=== PATIENT | male | born 1940 | race Caucasian/White ===

== ENCOUNTER 2017-02-06 09:07 | Day surgery (SDC) | payer MEDICARE, OTHER ==
--- NOTE | ~2017-02-06 | EGD ---
EGD REPORT [facility] [address] [address] NAME: BRAXTON ALEJANDRE : [birth year] STATUS : REG [facility] [place] PAT#: [id number] AGE: 76 ADM/REG DATE : 02/06/17 MR#: [id number] REPORT SERV DATE: 02/06/17 DICTATED BY: CHARLI RANGEL III DATE: 02/06/17 REPORT STATUS : Draft TRANSCRIBED BY: [facility] DATE: 02/06/17 Endoscopy Center Patient Name: Braxton Alejandre Date of : 1940 Attending MD: CHARLI RANGEL III, MD Procedure Date No Time: 02/06/2017 Procedure: Upper GI endoscopy Indications: Melena Referring MD: SOLANGE BARAKAT Medicines: Propofol per Anesthesia Complications: No immediate complications. Procedure: Pre-Anesthesia Assessment: - ASA Grade Assessment: III - A patient with severe systemic disease. After obtaining informed consent, the endoscope was passed under direct vision. Throughout the procedure, the patient's blood pressure, pulse, and oxygen saturations were monitored continuously. The GIF H190 [id number] was introduced through the mouth, and advanced to the third part of duodenum. The upper GI endoscopy was accomplished with ease. The patient tolerated the procedure well. Findings: Localized mild erythema was found at the gastroesophageal junction. Biopsies were taken with a cold forceps for histology. A non-obstructing Schatzki ring (acquired) was found at the gastroesophageal junction. A medium-sized hiatus hernia was present. Multiple dispersed, small non-bleeding erosions were found in the gastric antrum. There were stigmata of recent bleeding. Biopsies were taken with a cold forceps for histology. The examined duodenum was normal. Impression: - Erythema at the gastroesophageal junction. Biopsied. - Non-obstructing Schatzki ring. - Hiatus hernia. - Non-bleeding erosive gastropathy. Biopsied. - Normal examined duodenum. Recommendation: - Patient has a contact number available for emergencies. The signs and symptoms of potential delayed complications were discussed with the patient. Return to normal activities tomorrow. Written discharge instructions were provided to the patient. EGD REPORT [address] [address] NAME: BRAXTON ALEJANDRE : [birth year] STATUS : REG [facility] [place] PAT#: [id number] AGE: 76 ADM/REG DATE : 02/06/17 MR#: [id number] REPORT SERV DATE: 02/06/17 DICTATED BY: CHARLI RANGEL III DATE: 02/06/17 REPORT STATUS : Draft TRANSCRIBED BY: [employer] DATE: 02/06/17 - Discharge patient to home. - Return to previous diet. - Follow an antireflux regimen. - Continue present medications. - Await pathology results. Procedure Code(s): --- Professional --- 70783, Esophagogastroduodenoscopy, flexible, transoral; with biopsy, single or multiple Diagnosis Code(s): --- Professional --- K22.9, Disease of esophagus, unspecified K22.2, Esophageal obstruction K44.9, Diaphragmatic hernia without obstruction or gangrene K31.9, Disease of stomach and duodenum, unspecified K92.1, Melena CPT copyright 2013 [employer]. All rights reserved. The codes documented in this report are preliminary and upon electrical project engineer review may be revised to meet current compliance requirements. CHARLI RANGEL III, MD 02/06/2017 11:02 AM This report has been signed electronically. Number of Addenda: 0 Note Initiated On: 02/06/2017 10:42 AM Scope Withdrawal Time 0 hours 0 minutes 0 seconds [address] [address]
--- NOTE | ~2017-02-06 | EGD ---
EGD REPORT [facility] [address] [address] NAME: BRAXTON ALEJANDRE : 36 STATUS : REG [facility] [place] PAT#: [id number] AGE: 76 ADM/REG DATE : 02/06/17 MR#: [id number] REPORT SERV DATE: 02/06/17 DICTATED BY: CHARLI RANGEL III DATE: 02/06/17 REPORT STATUS : Draft [facility] DATE: 02/06/17 Endoscopy Center Patient Name: Braxton Alejandre Date of : 1940 Attending MD: CHARLI RANGEL III, MD Procedure Date No Time: 02/06/2017 Procedure: Colonoscopy Indications: High risk colon cancer surveillance: Personal history of colonic polyps Referring MD: SOLANGE BARAKAT Medicines: Propofol per Anesthesia Complications: No immediate complications. Procedure: Pre-Anesthesia Assessment: - ASA Grade Assessment: III - A patient with severe systemic disease. After I obtained informed consent, the scope was passed under direct vision. Throughout the procedure, the patient's blood pressure, pulse, and oxygen saturations were monitored continuously. The PCF [id number] was introduced through the anus and advanced to the cecum, identified by appendiceal orifice and ileocecal valve. The colonoscopy was performed with ease. The patient tolerated the procedure well. The quality of the bowel preparation was good. Findings: The terminal ileum appeared normal. Multiple diverticula were found in the sigmoid colon. External and internal hemorrhoids were found during retroflexion. Four sessile polyps were found in the ascending colon. The polyps were 5 to 6 mm in size. These polyps were removed with a cold snare. Resection and retrieval were complete. Six sessile polyps were found in the transverse colon. The polyps were 4 to 7 mm in size. These polyps were removed with a cold snare. Resection and retrieval were complete. These polyps were removed with a cold biopsy forceps. Resection and retrieval were complete. Impression: - The examined portion of the ileum was normal. - Diverticulosis in the sigmoid colon. - External and internal hemorrhoids. - Four 5 to 6 mm polyps in the ascending colon. Resected and retrieved. - Six 4 to 7 mm polyps in the transverse colon. Resected and retrieved. EGD REPORT [address] [address] NAME: BRAXTON ALEJANDRE : [birth year] STATUS : REG [facility]#: [id number] AGE: 76 ADM/REG DATE : 02/06/17 MR#: [id number] REPORT SERV DATE: 02/06/17 DICTATED BY: CHARLI RANGEL III DATE: 02/06/17 REPORT STATUS : Draft TRANSCRIBED BY: [employer] DATE: 02/06/17 Recommendation: - Patient has a contact number available for emergencies. The signs and symptoms of potential delayed complications were discussed with the patient. Return to normal activities tomorrow. Written discharge instructions were provided to the patient. - Discharge patient to home. - High fiber diet indefinitely. - Resume anticoagulant medication at prior dose tomorrow. - Await pathology results. Procedure Code(s): --- Professional --- 09323, Colonoscopy, flexible, proximal to splenic flexure; with removal of tumor(s), polyp(s), or other lesion(s) by snare technique Diagnosis Code(s): --- Professional --- K64.8, Other hemorrhoids K57.30, Diverticulosis of large intestine without perforation or abscess without bleeding D12.3, Benign neoplasm of transverse colon D12.2, Benign neoplasm of ascending colon Z86.010, Personal history of colonic polyps CPT copyright 2013 [employer]. All rights reserved. The codes documented in this report are preliminary and upon mice raiser review may be revised to meet current compliance requirements. CHARLI RANGEL III, MD 02/06/2017 11:30 AM This report has been signed electronically. Number of Addenda: 0 Note Initiated On: 02/06/2017 11:02 AM Scope Withdrawal Time 0 hours 21 minutes 47 seconds
[~2017-02-06 09:07] MED LIST: *UNABLE1; ALEVE220 MG PO; ALLEGRA180; ALLEGRA180 PO; AMB10 PO; ASAB PO; ATV.5 PO; ATV1 PO; BETAPACE80 PO; BRILINTA90 MG; BRILINTA90 MG PO; CENTRUM PO; CENTRUM TAB1 TAB PO; COZAAR100 MG PO; FLOMAX4 PO; LIPITOR20 PO; LOP100 PO; MACROBID PO; METHOC500B PO; MULTI-VIT HP OR; NEUR300 PO; NITROSTAT0.4 MG SL; NORV5 PO; RAN500 PO; SORINE120 MG PO; TRAZ100 PO; VICODINTAB PO; VITAMIN B-122500 MCG SL; VITAMIN D31000 UNIT PO; XARELTO20 MG PO
[2017-06-13] MEDS ORDERED: XARELTO20 MG PO (15:06)
[2017-06-13] MEDS ORDERED: NORV25 PO (15:07)
[2017-06-13] MEDS ORDERED: COZAAR100 MG PO (15:07)
[2017-06-13] MEDS ORDERED: SORINE120 MG PO (15:07)
[2017-06-13] MEDS ORDERED: LIPITOR20 PO (15:07)
[2017-06-13] MEDS ORDERED: RAN500 PO (15:09)
[2017-06-13] MEDS ORDERED: TRAZ100 PO (15:09)
[2017-06-13] MEDS ORDERED: NEUR300 PO (15:09)
[2017-06-13] MEDS ORDERED: NITROSTAT0.4 MG SL (15:10)
[2017-06-13] MEDS ORDERED: FLOMAX4 PO (15:10)
[2017-06-13] MEDS ORDERED: ASAB PO (15:10)
[2017-06-15] MEDS ORDERED: NORV10 PO (19:04)
[2017-06-15] MEDS ORDERED: LOP25 PO (19:05)
== END 2017-02-06 23:59 | disposition home health service (06) ==
LOC: DMU 09:07
PROVIDERS: Internal Medicine Gastroenterology
PROC: 0DB48ZX Excision of Esophagogastric Junction, Via Natural or Artificial Opening Endoscopic, Diagnostic (ICD-10-PCS; 2017-02-06)
PROC: 0DB68ZX Excision of Stomach, Via Natural or Artificial Opening Endoscopic, Diagnostic (ICD-10-PCS; 2017-02-06)
PROC: 0DBK8ZZ Excision of Ascending Colon, Via Natural or Artificial Opening Endoscopic (ICD-10-PCS; principal; 2017-02-06 11:00)
PROC: 0DBL8ZZ Excision of Transverse Colon, Via Natural or Artificial Opening Endoscopic (ICD-10-PCS; 2017-02-06 11:00)
PROC: 0DBL8ZX Excision of Transverse Colon, Via Natural or Artificial Opening Endoscopic, Diagnostic (ICD-10-PCS; 2017-02-06 11:00)
DX: D12.3 Benign neoplasm of transverse colon (principal); D12.2 Benign neoplasm of ascending colon; K64.8 Other hemorrhoids; K57.30 Diverticulosis of large intestine without perforation or abscess without bleeding; K44.9 Diaphragmatic hernia without obstruction or gangrene; I51.89 Other ill-defined heart diseases; K22.2 Esophageal obstruction; K29.50 Unspecified chronic gastritis without bleeding; F41.9 Anxiety disorder, unspecified; I25.10 Atherosclerotic heart disease of native coronary artery without angina pectoris; I10 Essential (primary) hypertension; G47.33 Obstructive sleep apnea (adult) (pediatric); E78.00 Pure hypercholesterolemia, unspecified; Z86.010 Personal history of colon polyps; Z88.0 Allergy status to penicillin; Z88.2 Allergy status to sulfonamides; Z88.8 Allergy status to other drugs, medicaments and biological substances; Z90.49 Acquired absence of other specified parts of digestive tract
CPT/HCPCS: 88305; 88342